=== PATIENT | female | born 1950 | race Caucasian/White ===

== ENCOUNTER → 2019-05-01 | Outpatient (CLI) | payer BC, MEDICARE | END | disposition home or self-care (01) | LOC: C/S 13:36 | DX: R22.0 Localized swelling, mass and lump, head (principal) | CPT/HCPCS: 70486 ==

== ENCOUNTER → 2019-05-22 | Outpatient (CLI) | payer BC, MEDICARE | END | disposition home or self-care (01) | LOC: RAD 11:38 | DX: M25.562 Pain in left knee (principal) | CPT/HCPCS: 73562 ==